=== PATIENT | female | born 1935 | race Caucasian/White ===

== ENCOUNTER 2018-08-25 08:52 | Emergency (ER) | payer MEDICARE, BC ==
[2018-08-25 09:10] VITALS: BP 152/80
--- NOTE | 2018-08-25 09:25 | UC ---
Throat Pain/Nasal Fabrice HPI - HPI Summary HPI Summary: 82-year-old woman comes in with chief complaint of upper respiratory tract infection symptoms for about 6 days. She's had a runny nose sore throat. Rhinorrhea is yellow. She is also feeling chest congestion over last night. She denies any concern of heart attack. No edema. No calf pain. No myalgias. An acquaintance has the flu. - History of Current Complaint Chief Complaint: UCRespiratory Stated Complaint: FLU-LIKE SYM Time Seen by Provider: 08/25/18 09:12 Pain Intensity: 8 - Allergies/Home Medications Allergies/Adverse Reactions: Allergies Allergy/AdvReac Type Severity Reaction Status Date / Time Penicillins Allergy See Comment Verified 08/25/18 09:10 Home Medications: Home Medications Atorvastatin* [Lipitor*] 20 mg PO DAILY 08/25/18 [History Confirmed 08/25/18] Calcium Carbonate/Vitamin D3 [Calcium 500 + Vit D Caplet] 1 each PO 08/25/18 [ History] Lactobacillus Acidophilus [Freeze Dried Acidophilus] 1 cap PO 08/25/18 [History] Lisinopril/HCTZ 10/12.5(NF) [Zestoretic 10/12.5(NF)] 1 tab PO DAILY 08/25/18 [ History Confirmed 08/25/18] Olopatadine 0.1% OPHTH (NF) [Patanol 0.1% OPHTH (NF)] 1 drop BOTH EYES 08/25/18 [History] PMH/Surg Hx/FS Hx/Imm Hx - Surgical History Surgical History: Yes Surgery Procedure, Year, and Place: 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 Negative: Myalgia Neurological: Positive: Negative Psychological: Positive: Negative Is Patient Immunocompromised?: No Physical Exam Triage Information Reviewed: Yes Appearance: Well-Appearing, No Pain Distress, Well-Nourished Vital Signs: Initial Vital Signs Temp 98.3 F 08/25/18 09:03 Pulse 73 08/25/18 09:03 Resp 18 08/25/18 09:03 BP 152/80 08/25/18 09:03 Pulse Ox 98 08/25/18 09:03 Vital Signs Reviewed: Yes Eye Exam: Normal Eyes: Positive: Conjunctiva Clear ENT: Positive: Pharyngeal erythema, Nasal congestion, Nasal drainage, TMs normal Neck exam: Normal Neck: Positive: Supple Respiratory: Positive: Lungs clear, Normal breath sounds, No respiratory distress Cardiovascular: Positive: RRR Musculoskeletal Exam: Normal Musculoskeletal: Positive: Strength Intact, ROM Intact, No Edema, Other: - NO CALF TENDERNESS Neurological Exam: Normal Neurological: Positive: Alert Psychological Exam: Normal Psychological: Positive: Age Appropriate Behavior Skin Exam: Normal Throat Pain/Nasal Course/Dx - Course Course Of Treatment: NO CLINICAL SIGNS OF INFLUENZA OR PNEUMONIA AT THIS TIME. PATIENT DECLINED INFLUENZA TEST AND CXR AT THIS TIME. THE PATIENT WISHES TO BE ON ANTIBIOTICS AT THIS TIME. - Differential Dx/Diagnosis Provider Diagnosis: Upper respiratory infection Discharge - Sign-Out/Discharge Documenting (check all that apply): Patient Departure All imaging exams completed and their final reports reviewed: No Studies - Discharge Plan Condition: Stable Disposition: HOME Prescriptions: Azithromyxin TRI (NF) [Z-Tri (Zithromax) 250 mg tabs #6] 2 tab PO .TODAY, THEN 1 DAILY #6 tab Patient Education Materials: Upper Respiratory Infection (ED) Referrals: Cailin Salazar MD [Primary Care Provider] - Additional Instructions: FOLLOW UP WITH YOUR DOCTOR IF NOT COMPLETELY IMPROVED. GET RECHECKED FOR ANY WORSENING OF YOUR CONDITION OR QUESTIONS OR CONCERNS. - Billing Disposition and Condition Condition: STABLE Disposition: Home
== END 2018-08-25 09:30 | disposition home or self-care (01) ==
LOC: UCEAST 08:52
DX: J06.9 Acute upper respiratory infection, unspecified (principal); Z88.0 Allergy status to penicillin
CPT/HCPCS: 99212; G0463